=== PATIENT | male | born 1980 | race Caucasian/White ===

== ENCOUNTER 2019-06-24 20:06 | Emergency (ER) | payer SELFPAY ==
[~2019-06-24] VITALS: Ht 172.7 cm; Wt 72.6 kg
[2019-06-24] MEDS ORDERED: PROAIR HFA8.5 GM INH (20:24)
[2019-06-24] MEDS ORDERED: AUGMENTIN 875-875 MG PO (20:25)
[2019-06-24] MEDS ORDERED: DELTASONE20 M1 PO (20:25)
[2019-06-24] MEDS ORDERED: FLONASE ALLERG9.9 ML NAS (20:25)
== END 2019-06-24 20:52 | disposition home or self-care (01) ==
LOC: ED 20:06
DX: J01.90 Acute sinusitis, unspecified (principal); J20.9 Acute bronchitis, unspecified